=== PATIENT | female | born 1975 | race Caucasian/White ===

== ENCOUNTER 2019-03-28 08:08 | Emergency (ER) | payer OTHER ==
[~2019-03-28] VITALS: Ht 177.8 cm; Wt 85.7 kg
[2019-03-28 08:10] VITALS: BP 126/86
--- NOTE | 2019-03-28 08:46 | PHYS DOC ---
Past History Past Medical History: No Pertinent History Adult General Chief Complaint Chief Complaint: COUGH HPI HPI Patient is a 43-year-old female who presents to the emergency department for evaluation. She states that for the past 2 days, she has had nasal congestion, fever, and a mostly nonproductive cough. She has not had any chest pain. She has not had any otalgia, or lethargy. Her son is in the emergency department with similar symptoms. She has not had any nausea or vomiting. There are no alleviating or exacerbating factors to her symptoms. Review of Systems Review of Systems Constitutional: Denies lethargy or chills [] Eyes: Denies change in visual acuity, redness, or eye pain [] HENT: Denies otalgia or sore throat [] Respiratory: Denies productive cough or shortness of breath [] GI: Denies abdominal pain, nausea, vomiting, bloody stools or diarrhea [] Integument: Denies rash or skin lesions [] Neurologic: Denies headache, focal weakness or sensory changes [] Allergies Allergies Allergies Coded Allergies Type Severity Reaction Last Updated Verified erythromycin base Allergy Unknown 03/28/19 Yes Physical Exam Physical Exam PHYSICAL EXAM: CONSTITUTIONAL: Well developed, well nourished HEAD: normocephalic, atraumatic EENT: PERRL, EOMI. Conjunctivae normal color, sclerae non-icteric; moist mucous membranes. Nasal congestion is present. Tympanic membranes are normal bilaterally. The oropharynx is nonerythematous. NECK: Supple, non-tender; no meningismus. LUNGS: Lungs CTA, breathing even and unlabored. Normal air movement. HEART: Regular rate and rhythm, no murmur CHEST: No deformity; non-tender ABDOMEN: The abdomen is soft, and non-tender, no masses or bruits. EXTREM: Normal ROM; no deformity, no calf tenderness. Normal pulses palpable in all extremities. There is no pedal edema. SKIN: No rash; no diaphoresis NEURO: Alert; normal speech and cognition; CN's grossly intact; strength grossly intact without focal deficit. BACK: No CVA TTP. Current Patient Data Vital Signs Vital Signs Date Time Temp Pulse Resp B/P (MAP) Pulse Ox O2 Delivery O2 Flow Rate FiO2 03/28/19 08:08 100.0 90 18 126/86 (99) 97 Room Air EKG EKG [] Radiology/Procedures Radiology/Procedures [] Course & Med Decision Making Course & Med Decision Making Patient's influenza swab is positive. However, given that she is greater than 48 hours after symptom onset, after discussing the risks and benefits she declined Tamiflu at this time. I discussed importance of close follow-up and return precautions. Dragon Disclaimer Dragon Disclaimer This electronic medical record was generated, in whole or in part, using a voice recognition dictation system. Departure Departure: Impression: Primary Impression: Influenza A Disposition: 01 HOME, SELF-CARE Condition: STABLE Patient Instructions: Influenza A (H1N1) YOAV DUMAS MD Mar 28, 2019 08:46
[2019-03-28 09:00] LABS: INFLUENZA A PATIENT POSITIVE (NEGATIVE)
[2019-03-28 09:01] LABS: INFLUENZA B PATIENT NEGATIVE (NEGATIVE)
== END 2019-03-28 09:20 | disposition home or self-care (01) ==
LOC: ER 08:08
DX: J10.1 Influenza due to other identified influenza virus with other respiratory manifestations (principal); Z88.1 Allergy status to other antibiotic agents
CPT/HCPCS: 87804; 99284

== ENCOUNTER → 2020-03-21 | Outpatient (CLI) | payer OTHER ==
--- NOTE | 2020-04-04 11:31 | RAD ---
DATE: 03/21/2020 9:40 AM EXAM: MAMMO [facility]ER[facility] SCREENING BILATERAL HISTORY: Screening COMPARISON: None currently available. Bilateral CC and MLO views of the breasts were performed. Bilateral breast tomosynthesis was performed in CC and MLO projections. This study was interpreted with the benefit of Computerized Aided Detection (CAD). FINDINGS: Breast Density: SCATTERED The breast parenchyma shows scattered fibroglandular densities. Breast parenchyma level B Negative right mammogram. Cluster of calcifications in the left breast in the lateral middle third left breast approximately 6 cm from the nipple best seen on the 2-D cc view needs additional imaging with magnification views. A full-field lateral view could be helpful. In addition, a subareolar asymmetry in the left breast best seen on the MLO tomographic series, image 25 of 63, needs additional imaging with spot compression and targeted left breast ultrasound at the approximate 6:00 subareolar position. IMPRESSION: Incomplete. Asymmetry and calcifications in the left breast needs additional imaging. BI-RADS CATEGORY: 0 INCOMPLETE: NEEDS ADDITIONAL IMAGING EVALUATION AND/OR PRIOR MAMMOGRAMS FOR COMPARISON. RECOMMENDED FOLLOW-UP: ADD ADDITIONAL IMAGING Recommend magnification views, full-field lateral view and targeted ultrasound of the left breast as described. PQRS compliance statement: Patient information was entered into a reminder system with a target due date for the next mammogram. Mammography is a sensitive method for finding small breast cancers, but it does not detect them all and is not a substitute for careful clinical examination. A negative mammogram does not negate a clinically suspicious finding and should not result in delay in biopsying a clinically suspicious abnormality. "Our facility is accredited by the [employer] Mammography Program."
== END ==
LOC: MAMMO 09:30
PROVIDERS: ATTEND Family Medicine
DX: Z12.31 Encounter for screening mammogram for malignant neoplasm of breast (principal); N64.89 Other specified disorders of breast
CPT/HCPCS: 77063; 77067

== ENCOUNTER → 2020-04-12 | Outpatient (CLI) | payer OTHER ==
--- NOTE | 2020-04-18 08:52 | RAD ---
Examination: 1. Left digital diagnostic mammogram. 2. Limited left breast ultrasound. INDICATION: 44-year-old woman recalled from screening for calcifications and asymmetry in the subareo lar left breast. She reports a history of anxiety and expressed sincere interest in the results of th is diagnostic workup. COMPARISON: Bilateral mammogram of 03/21/2020 TECHNIQUE: Magnification views of the left breast in the CC and ML projections were obtained in addit ion to full field left ML view and a spot compression left MLO view. Targeted ultrasound of the subar eolar left breast and axilla was next pursued. FINDINGS: Scattered fibroglandular densities. Cluster of amorphous calcifications in the lateral middle third left breast is confirmed on digital d iagnostic mammography, showing a linear distribution approximately 7 mm long. These are suspicious. Incidental more medial coarse, benign dystrophic calcification is also noted. The asymmetry in the subareolar left breast changed configuration in a pattern compatible with dense overlapping fibroglandular tissue but did not fully dissipate so was evaluated by targeted left breas t ultrasound which revealed fibroglandular tissue with no suspicious sonographic findings. No axillar y adenopathy. Incidental benign 4 mm cyst in the left breast at the 4:00 position 1 cm from the nippl e. IMPRESSION: Suspicious cluster of calcifications in the lateral left breast. BI-RADS Category 4 Findings suspicious for malignancy Stereotactic left breast biopsy is recommended. Discussed with patient. Spoke with Hina Jackson, nurse navigator for the patient at 8:47 am on 04/18/2020. Electronically signed by: Ana Bhandari MD (04/18/2020 8:50 AM) [id number]
== END ==
LOC: MAMMO 08:40
PROVIDERS: ATTEND Family Medicine
DX: R92.8 Other abnormal and inconclusive findings on diagnostic imaging of breast (principal)
CPT/HCPCS: 76641; 77065